=== PATIENT | female | born 1965 | race Caucasian/White ===

== ENCOUNTER 2021-06-29 15:38 | Emergency (ER) | payer OTHER ==
[~2021-06-29] VITALS: Ht 147.3 cm; Wt 71.7 kg
[2021-06-29 15:59] VITALS: BP 166/75
[2021-06-29] MEDS ORDERED: LIDOCAINE 5% 1 EA PATCH TP STA (16:43)
[2021-06-29] MEDS ORDERED: KETOROLAC 30 MG/ML VIAL IM ONE (16:45)
--- NOTE | 2021-06-29 16:45 | NUR ---
56 y/o female, c/o low right sided back pain radiates down entire right extremity, pain increases with exertion. denies fall or injury to area. denies nausea, vomiting, diarrhea. skin is pink/warm/dry. a&o x4 pt states she is unable to bear weight on right side or ambulate. lungs clear bl, heart rate even and regular. pt denies dysuria, hematuria, urinary frequency or retention. pt denies any fever, cp, sob, or cough at this time. pt states pain is 10/10 at this time. patient positioned for comfort. hob elevated. bed down. ermd made aware of pt. pmh: dm2 nka med: denies
--- NOTE | 2021-06-29 16:53 | NUR ---
pt taken to xray via [facility] at this time
[2021-06-29] MEDS ORDERED: MOT200 PO (18:23)
[2021-06-29] MEDS ORDERED: LID5T TP (18:23)
[2021-06-29] MEDS ORDERED: ACET-8386 PO (18:23)
[2021-06-29 18:59] VITALS: BP 166/75
--- NOTE | 2021-06-29 19:00 | NUR ---
Patient discharged with v/s stable. Written and verbal after care instructions given and explained. Patient alert, oriented and verbalized understanding of instructions. Ambulatory with spouse to car. All questions addressed prior to discharge. ID band removed. Patient advised to follow up with PMD. Rx of norco, ibuprofen, lidocaine patch (sent) given. Patient educated on indication of medication including possible reaction and side effects. Opportunity to ask questions provided and answered.
== END 2021-06-29 18:59 | disposition home or self-care (01) ==
LOC: MED 15:38
DX: M54.41 Lumbago with sciatica, right side (principal); E11.9 Type 2 diabetes mellitus without complications
CPT/HCPCS: 72110; 96372; 99283; J1885